=== PATIENT | male | born 1955 | race Caucasian/White ===

== ENCOUNTER 2021-06-11 06:53 | Outpatient (CLI) | payer MEDICARE, OTHER ==
[2021-06-11] VITALS (21 sets, daily range): BP systolic 100–146; BP diastolic 50–96; PULSE 64–91; TEMP 97.6
[~2021-06-11] VITALS: Ht 180.3 cm; Wt 98.7 kg
[~2021-06-11 06:53] MED LIST: B-121000 MCG PO; FLONASEALLERGY NS; FOLIC ACID800 MCG PO; LOFIBRA160 MG PO; MOBIC 7.5MG7.5 MG PO
--- NOTE | 2021-06-11 12:06 | NUR ---
PT resting quietly, continues to have soreness to R chest, discussed discharge instructions with him, he verbalized understanding, signed forms, IV DC'd, pt escorted off unit in wheel chair.
== END 2021-06-16 16:56 ==
LOC: COL.RAD 06:53
DX: R91.1 Solitary pulmonary nodule (principal)
CPT/HCPCS: J2250; J3010

== ENCOUNTER 2021-06-11 19:25 | Observation (INO) | payer MEDICARE, OTHER ==
[~2021-06-11] VITALS: Ht 180.3 cm; Wt 96.5 kg
[2021-06-11 21:32] LABS: BASO # 0.1 K/mm3 (0.0-0.2); BASO % 0.7 % (0.0-2.0); EOS # 0.2 K/mm3 (0.0-0.7); EOS % 2.6 % (0-4.0); GRAN % 74.4 % (42.2-75.2); HEMATOCRIT 49.5 % (42.0-52.0); HEMOGLOBIN 16.7 g/dl (13.5-18.0); LYMPH # 1.4 K/mm3 (1.2-3.4); LYMPH % 14.4 % (20.0-51.0); MEAN CELL VOLUME 98 fl (80.0-100.0); MEAN CORPUSCULAR HEMOGLOBIN 33 pg (27.0-31.0); MEAN CORPUSCULAR HGB CONC 34 g/dl (33.0-37.0); MEAN PLATELET VOLUME 10.8 fl (7.4-10.4); MONO # 0.7 K/mm3 (0.1-0.6); MONO % 7.2 % (1.7-9.3); PLATELET COUNT 214 K/mm3 (130-400); RED BLOOD COUNT 5.03 M/mm3 (4.20-5.60)
[2021-06-11 21:49] LABS: ALBUMIN 4.1 gm/dL (3.4-4.8); BILIRUBIN,TOTAL 0.7 mg/dL (0.2-1.2); CALCIUM 9.3 mg/dL (8.4-10.2); CREATININE, serum 0.81 mg/dL (0.72-1.25); POTASSIUM 4.1 mmol/L (3.5-4.5); TOTAL PROTEIN 7.3 gm/dL (6.2-8.1)
--- NOTE | 2021-06-11 22:27 | NUR ---
PT ARRIVES TO ROOM VIA CART.
[2021-06-11 22:37] VITALS: BP 148/76; PULSE 68; TEMP 97.8
--- NOTE | 2021-06-11 22:56 | NUR ---
MEDICATED WITH TYLENOL 650MG PO FOR RT CHEST TUBE DISCOMFORT. HAS SMALL CT TO FLUTTER VALVE. SCDS ON. IS ALERT AND ORIENTED X4. SL TO RT AC, FLUSHES WELL. ORIENTED TO BED AND ROOM. EATING CRACKERS, WATER AT BEDSIDE.
[2021-06-12 04:20] VITALS: BP 114/53; PULSE 70; TEMP 98.7
--- NOTE | 2021-06-12 04:20 | NUR ---
PT AWAKE, HAS TAKEN SCDS OFF D/T LEG SPASMS. UP TO BATHROOM TO VOID. DENIES NEED FOR MORE TYLENOL AT THIS TIME. RT FLUTTER VALVE INTACT. DENIES SHORTNESS OF BREATH.
--- NOTE | 2021-06-12 08:00 | NUR ---
Patient sitting up in bed watching TV. A&Ox4. VSS. IV CDI. Heimlich to RT chest CDI. Denies pain, discomfort, SOB. Is hoping to go home today. No further needs expressed. Call light within reach
[2021-06-12 08:03] VITALS: BP 131/69; PULSE 68; TEMP 97.9
--- NOTE | 2021-06-12 10:38 | NUR ---
Discharge paperwork reviewed with the patient and at the bedside. Patient verbalized an understanding to follow doctors orders. IV removed, tip intact. Heimlich in place and discharge education provided to the patient. Patient ambulated to the ED entrance independently. No further needs expressed.
--- NOTE | 2021-06-12 10:47 | NUR ---
First visit from the button maker and installer. No needs right now.
--- NOTE | 2021-06-12 11:25 | NUR ---
Plan is to return home with Deisy . Patient reports that they reside in [place]. July Veloz is DTR and secondary contact at . PCP is reported as Viki Arboleda and rx is [facility] in [place]. Patient denies having any DME concerns. Other specialist is Dr. Jama. Last seen within month. Patien denies being in any pain and has no care concerns. NF>
== END 2021-06-12 10:40 | disposition home or self-care (01) ==
LOC: SURG 06-12 10:40
PROVIDERS: Nurse Practitioner Family; ADMIT Student in an Organized Health Care Education/Training Program
DX: J95.811 Postprocedural pneumothorax (principal); J98.4 Other disorders of lung; F17.210 Nicotine dependence, cigarettes, uncomplicated; Z79.899 Other long term (current) drug therapy; Z80.1 Family history of malignant neoplasm of trachea, bronchus and lung
CPT/HCPCS: G0378

== ENCOUNTER → 2023-08-23 | Outpatient (CLI) | payer MEDICARE, OTHER ==
[~2023-08-23] VITALS: Ht 180.3 cm; Wt 97.3 kg
[~2023-08-23] MED LIST changes: +TRELEGY ELLIPT1 EACH IH; +VOLTAREN GEL 1%1 TU TP; +XARELTO20 MG PO
[2023-08-23 07:27] VITALS: BP 140/90; PULSE 90; TEMP 97.6
--- NOTE | 2023-08-23 09:16 | NUR ---
procedure cancelled by dr ogden. eu notifiec
== END ==
LOC: COL.RAD 07:13
DX: R91.1 Solitary pulmonary nodule (principal)

== ENCOUNTER 2024-01-16 08:51 | Day surgery (SDC) | payer MEDICARE, OTHER ==
[~2024-01-16] VITALS: Ht 180.3 cm; Wt 94.1 kg
[2024-01-16] VITALS (12 sets, daily range): BP systolic 128–157; BP diastolic 69–86; PULSE 68–76; TEMP 98.1
[2024-01-16] MEDS ORDERED: ZITHROMAX500 M2 PO (09:35)
[2024-01-16] MEDS ORDERED: ETHAMBUTOL HYD400 MG PO (09:36)
[2024-01-16] MEDS ORDERED: BENADRYL25 M2 PO (09:37)
[2024-01-16] MEDS ORDERED: CRESTOR5 MG PO (09:37)
[2024-01-16] MEDS ORDERED: B-121000 MCG PO (09:39)
[2024-01-16] MEDS ORDERED: FOLIC ACID0.4 MG PO (09:39)
[2024-01-16] MEDS ORDERED: TYLENOL 8 HR PO (09:39)
[2024-01-16] MEDS ORDERED: NASAL MOISTURIZ45 ML NS (09:41)
[2024-01-16] MEDS ORDERED: 1/2 NS 1,000 ML IV SCH (10:00)
[2024-01-16] MEDS ORDERED: Midazolam 2 MG/2 ML VIAL IV SCH (11:26)
[2024-01-16] MEDS ORDERED: fentaNYL 50 MCG/ML 2 ML VIAL IV SCH (11:27)
--- NOTE | 2024-01-16 11:29 | NUR ---
Please see merge documentation for record of interventions, vitals and medications administered during Left Heart Cath with Dr. Gonsalves
--- NOTE | 2024-01-16 12:20 | NUR ---
Wilbur was transferred back to express unit rm 11 after left and right heart cath with Dr. Gonsalves. Pt is doing well, rt groin site remains soft, cms intact distal, dressing CDI. Pt hooked up for post procedure monitoring. at bs, call light in reach. BS report and hand off of care to Jeff OTERO.
[2024-01-16] MEDS ORDERED: Iohexol 350 - 100 ML VIAL INCOR ONE (12:30)
--- NOTE | 2024-01-16 15:25 | NUR ---
Dr Gonsalves contacted per pt's request. Pt stating he needs to have BM, and does not think he can use bedpan, he wishes to get up to use toilet in room. Bedrest period complete at 1600. Dr Gonsalves gives okay for pt to be assisted up to use toilet in room.
--- NOTE | 2024-01-16 15:35 | NUR ---
Pt back to bed after using toilet. Rt groin site remains soft to palpation. Dressing is clean, dry and intact after activity. VS remain stable and pt is free of complaints. at bedside. Call light in reach. Pt aware we will continue bedrest until 1600.
--- NOTE | 2024-01-16 16:31 | NUR ---
DC instructions reviewed with pt, he expresses understanding. He is stable on feet in room. Groin site remains soft to palpation, distal pulses 2+ and dressing is clean, dry ant intact. Pt is steady on feet in room. Pt ate meal tray during recovery period. IV DC'd, site wrapped with coban. He is free of complaints and denies questions. He is assisted out to 's car by wheelchair with belongings.
== END 2024-01-16 16:05 | disposition home or self-care (01) ==
LOC: COL.CAR 08:51
DX: I25.10 Atherosclerotic heart disease of native coronary artery without angina pectoris (principal); I27.20 Pulmonary hypertension, unspecified; Z85.46 Personal history of malignant neoplasm of prostate; Z86.718 Personal history of other venous thrombosis and embolism; Z79.01 Long term (current) use of anticoagulants
CPT/HCPCS: J1644; J2250; J3010; Q9967